=== PATIENT | female | born 1970 | race Caucasian/White ===

== ENCOUNTER → 2017-10-13 | Outpatient (CLI) | payer OTHER ==
[2017-10-13 15:50] VITALS: BP 156/71; PULSE 79; TEMP 97.7; BMI 30.2
--- NOTE | 2017-10-13 17:44 | P.HPOB ---
History of Present Illness H&P Date: 10/13/17 Chief Complaint: The patient is here for her routine gynecologic exam and mammogram. This is a 46-year-old with an LMP of 09/17/2017. She is status post tubal ligation. At the time offer tubal ligation in February 2016, she was told she has a uterine fibroid. It was estimated to be 4 cm and subserosal in nature. This also showed up in an abdominal ultrasound, but no measurements were given. The patient has been experiencing intermittent bladder pressure and urinary urgency. Through her primary caregiver, urine specimens were taken and there were no signs of urinary infection per the patient. She states her menses are regular every month and she does have fairly heavy flow especially on the 2nd day of the menses. She can pass clots and sometimes can soak through her protection on heavy days. Review of Systems The patient's weight has been stable over the last year. She denies respiratory , cardiac, or G.I. problems. 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 She does have a fibroid uterus. History of Any Multi-Drug Resistant Organisms: None Reported Past Surgical History: Cholecystectomy (November 2016), Ear Surgery, Tubal Ligation (February 2016) Additional Past Surgical History / Comment(s): Lens replacement for vision improvement. Past Anesthesia/Blood Transfusion Reactions: No Reported Reaction Additional Past Anesthesia/Blood Transfusion Reaction / Comment(s): no hx blood transfusion Past Psychological History: No Psychological Hx Reported Additional Psychological History / Comment(s): She recently was started on Zoloft to help her to sleep and to stay asleep at night. 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 Paternal grandmother and maternal aunt had breast cancer. Father Family Medical History: Cancer, Myocardial Infarction ([place]) Additional Family Medical History / Comment(s): stomach Medications and Allergies Home Medications Medication Instructions Recorded Confirmed Type Sertraline HCl 50 mg PO HS 02/27/16 03/04/16 History Atorvastatin [Lipitor] mg PO DAILY 10/13/17 History Allergies Allergy/AdvReac Type Severity Reaction Status Date / Time doxycycline AdvReac Severe Nausea & Unverified 10/13/17 15:44 Vomiting Exam Vital Signs Temp Pulse BP 10/13/17 15:45 97.7 F 79 156/71 Intake and Output 10/13/17 10/13/17 10/13/17 06:59 14:59 22:59 Other: Weight 79.832 kg Height 5'4", BMI 30.2. This is a well-developed well-nourished white female who is alert and oriented times 3 in no acute distress. HEENT: Within normal limits. NECK: Supple without mass or thyromegaly. CHEST AND LUNGS: Clear to auscultation. HEART: Regular rate and rhythm. BREASTS: Are without mass or discharge. AXILLARY EXAM: Negative for adenopathy. BACK: Negative for CVA tenderness. ABDOMEN: Soft, nontender, without palpable masses. The uterus is not palpable during the abdominal examination. PELVIC EXAM: Normal external genitalia. Cervix and vagina appear normal. There is no unusual discharge. There is no evidence of prolapse. The uterus is midposition slightly retroverted, 10-12 week size and nontender. The uterus is somewhat firm and slightly regular consistent with uterine fibroids. There are no palpable adnexal masses or tenderness. RECTAL EXAM: rectovaginal exam negative for mass or tenderness and is negative for occult blood. EXTREMITIES: Nontender. IMPRESSION: 1. 46-year-old premenopausal female with 10-12 week size fibroid uterus. 2. Intermittent bladder pressure and urgency with negative urine testing done by her primary caregiver. The urinary symptoms are probably secondary to the enlarged fibroid uterus. 3. Mild hypermenorrhea, possibly secondary to the fibroid uterus. PLAN: 1. Pap smear was performed. 2. Self breast awareness was discussed. 3. Screening mammogram will be done today. 4. Pelvic ultrasound will be scheduled to further delineate the size and number of uterine fibroids. 5. Trial of meclofenamate sodium 100 mg TID PRN for heavy menstrual flow up to 6 days per cycle. An electronic prescription will be sent to [facility] pharmacy in [place]. 6. The patient will try negative Valsalva exercises at the times when she feels pelvic pressure and also prior to voiding. 7. We have had a long discussion regarding uterine fibroids. We will consider referral for possible hysterectomy if symptoms are bothersome and not improving with more conservative measures. 8. She will also return in one year and PRN.
--- NOTE | 2017-10-14 12:14 | MM ---
Reason for exam: screening (asymptomatic). Last mammogram was performed 3 years and 7 months ago. History: Family history of breast cancer in aunt at age 42 and breast cancer in grandmother at age 70. Taking hormonal contraceptives for 13 years. Physical Findings: A clinical breast exam by your physician is recommended on an annual basis and results should be correlated with mammographic findings. MG 3D Screening Mammo W/Cad Bilateral CC and MLO view(s) were taken. XCCL view(s) were taken of the right breast. Prior study comparison: March 24, 2014, bilateral MG screening mammo w CAD. March 23, 2013, bilateral digital screening mammo w/CAD. There are scattered fibroglandular densities. No suspicious abnormality on the right breast. Left upper outer quadrant architectural distortion is seen at middle posterior depth. Left central upper low density mass appears new. ASSESSMENT: Incomplete: need additional imaging evaluation, BI-RAD 0 RECOMMENDATION: Special view mammogram of the left breast. If lesion persists on supplemental views, image directed ultrasound is recommended. [facility] will attempt to contact patient to return for supplemental views and ultrasound if indicated.
== END | disposition home or self-care (01) ==
LOC: WWCWWP 15:22
PROVIDERS: ATTEND Obstetrics & Gynecology
DX: Z12.31 Encounter for screening mammogram for malignant neoplasm of breast (principal)
CPT/HCPCS: 77063; 77067

== ENCOUNTER → 2017-10-15 | Outpatient (CLI) | payer OTHER ==
--- NOTE | 2017-10-15 07:37 | US ---
EXAMINATION TYPE: US pelvis complete transvag DATE OF EXAM: 10/15/2017 COMPARISON: NONE CLINICAL HISTORY: R10.2 Pelvic Pain, D25.9 Uterine Leiomyoma. Pelvic pressure, history of uterine fib roids, tubal ligation TECHNIQUE: Transvaginal (TV) and Transabdominal (TA) . Transabdominal sonographic images of the pel vis were acquired. Transvaginal sonographic images were medically necessary to better assess the fol lowing anatomy: endometrium and ovaries Date of LMP: 09/17/17 EXAM MEASUREMENTS: Uterus: 9.4 x 5.4 x 5.6 cm Endometrial Stripe: 0.8 cm Right Ovary: unable to visualize Left Ovary: 5.5 x 3.8 x 3.6 cm 1. Uterus: Retroverted Nabothian cysts. Multiple probable fibroids noted, largest at anterior right = 4.7 x 4.0 x 5.1cm 2. Endometrium: appears wnl 3. Right Ovary: Obscured by overlying bowel gas 4. Left Ovary: complex area = 4.8 x 2.5 x 4.6cm 5. Bilateral Adnexa: appears wnl 6. Posterior cul-de-sac: free fluid noted IMPRESSION: 1. Complex hypoechoic area left ovary. Hemorrhagic cyst could be considered within the differential. Endometrioma could be considered. Close follow-up is recommended. Other etiologies are not excluded a t this time. 2. Multiple Uterine fibroids. 3. Small amount of free fluid within the pelvis.
== END | disposition home or self-care (01) ==
LOC: RADUSWWP 06:48
PROVIDERS: ATTEND Obstetrics & Gynecology
DX: D25.9 Leiomyoma of uterus, unspecified (principal); N83.299 Other ovarian cyst, unspecified side
CPT/HCPCS: 76830; 76856

== ENCOUNTER → 2017-10-22 | Outpatient (CLI) | payer OTHER ==
--- NOTE | 2017-10-24 08:52 | MM ---
Reason for exam: additional evaluation requested from abnormal screening. Last mammogram was performed less than 1 month ago. History: Family history of breast cancer in aunt at age 42 and breast cancer in grandmother at age 70. Taking hormonal contraceptives for 13 years. Physical Findings: Nurse did not find any significant physical abnormalities on exam. MG 3D Work Up W/Cad LT Spot compression CC, spot compression MLO, and XCCL view(s) were taken of the left breast. Prior study comparison: October 13, 2017, bilateral MG 3d screening mammo w/cad. March 24, 2014, bilateral MG screening mammo w CAD. March 23, 2013, bilateral digital screening mammo w/CAD. Areas of concern nodularities do not go away. These results were verbally communicated with the patient and result sheet given to the patient on 10/22/17 ASSESSMENT: Incomplete: need additional imaging evaluation, BI-RAD 0 RECOMMENDATION: Ultrasound of the left breast.
--- NOTE | 2017-10-24 08:55 | USB ---
Reason for exam: additional evaluation requested from abnormal screening. History: Family history of breast cancer in aunt at age 42 and breast cancer in grandmother at age 70. Taking hormonal contraceptives for 13 years. US Breast Workup LT Left complete breast ultrasound includes all four quadrants, the retroareolar region and axilla. Finding demonstrates no cystic or solid lesion seen. These results were verbally communicated with the patient and result sheet given to the patient on 10/22/17 ASSESSMENT: Probably benign, BI-RAD 3 RECOMMENDATION: Follow-up diagnostic mammogram of the left breast in 6 months.
== END | disposition home or self-care (01) ==
LOC: RADMAMWWP 07:40
PROVIDERS: ATTEND Obstetrics & Gynecology
DX: R92.8 Other abnormal and inconclusive findings on diagnostic imaging of breast (principal)
CPT/HCPCS: 77061; 77065

== ENCOUNTER → 2018-05-07 | Outpatient (CLI) | payer BC ==
--- NOTE | 2018-05-07 13:38 | MM ---
Reason for exam: follow-up at short interval from prior study. Last mammogram was performed 6 months ago. History: Family history of breast cancer in aunt at age 42 and breast cancer in grandmother at age 70. Taking hormonal contraceptives for 13 years. Physical Findings: Nurse did not find any significant physical abnormalities on exam. MG 3D Diag Mammo W/Cad LT CC and MLO view(s) were taken of the left breast. Prior study comparison: October 22, 2017, left breast MG 3d work up w/cad LT. October 13, 2017, bilateral MG 3d screening mammo w/cad. There are scattered fibroglandular densities. No significant new findings when compared with previous films. These results were verbally communicated with the patient and result sheet given to the patient on 05/07/18. ASSESSMENT: Benign, BI-RAD 2 RECOMMENDATION: Return to routine screening mammogram schedule for both breasts. Back on schedule.
== END | disposition home or self-care (01) ==
LOC: RADMAMWWP 12:58
PROVIDERS: ATTEND Obstetrics & Gynecology
DX: R92.8 Other abnormal and inconclusive findings on diagnostic imaging of breast (principal)
CPT/HCPCS: 77061; 77065

== ENCOUNTER → 2018-12-21 | Outpatient (CLI) | payer BC ==
[2018-12-21 15:44] VITALS: BP 128/92; PULSE 84; RESP 16; TEMP 98.5; BMI 29.8
--- NOTE | 2018-12-21 16:23 | P.HPOB ---
History of Present Illness H&P Date: 12/21/18 Chief Complaint: The patient is here for her routine gynecologic exam and ma mmogram. This is a 47-year-old with an LMP of 11/29/2018. The patient has a history of hypermenorrhea. She states she has been doing better with meclofenamate sodium which she takes as needed. She typically uses about 5 per month. 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 She is status post tubal ligation. She was found to have a left ovarian complex cyst measuring approximately 5.1 cm by pelvic ultrasound on 10/15/2017. She was supposed to have a follow-up ultrasound after 2 months, but did not have this done. She denies any pelvic discomfort. Her last Pap smear on 10/13/2017 showed ASCUS with negative high-risk HPV testing. Review of Systems The patient has lost 2 pounds over the last year. She denies respiratory, cardiac, or G.I. problems. 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 She does have a fibroid uterus. History of Any Multi-Drug Resistant Organisms: None Reported Past Surgical History: Cholecystectomy, Ear Surgery, Tubal Ligation Additional Past Surgical History / Comment(s): Lens replacement for vision improvement. Past Anesthesia/Blood Transfusion Reactions: No Reported Reaction Additional Past Anesthesia/Blood Transfusion Reaction / Comment(s): no hx blood transfusion Past Psychological History: No Psychological Hx Reported Additional Psychological History / Comment(s): She recently was started on Zoloft to help her to sleep and to stay asleep at night. 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 - Past Family History Mother Additional Family Medical History / Comment(s): osteoporosis. Paternal grandmother and maternal aunt had breast cancer. Father Family Medical History: Cancer, Myocardial Infarction ([place]) Additional Family Medical History / Comment(s): Gastric cancer. Medications and Allergies Home Medications Medication Instructions Recorded Confirmed Type Sertraline HCl 50 mg PO HS 02/27/16 12/21/18 History Atorvastatin [Lipitor] 10 mg PO DAILY 10/13/17 12/21/18 History Meclofenamate Sodium 100 mg PO TID PRN #25 capsule 10/13/17 12/21/18 Rx Allergies Allergy/AdvReac Type Severity Reaction Status Date / Time doxycycline AdvReac Severe Nausea & Unverified 12/21/18 15:34 Vomiting Exam Vital Signs Temp Pulse Resp BP Pulse Ox 12/21/18 15:36 98.5 F 84 16 128/92 97 Intake and Output 12/21/18 12/21/18 12/21/18 06:59 14:59 22:59 Other: Weight 78.925 kg Height 5 feet 4 inches, weight 174 pounds, BMI 29.9. This is a well-developed well-nourished white female who is alert and oriented times 3 in no acute distress. HEENT: Within normal limits. NECK: Supple without mass or thyromegaly. CHEST AND LUNGS: Clear to auscultation. HEART: Regular rate and rhythm. BREASTS: Are without mass or discharge. AXILLARY EXAM: Negative for adenopathy. BACK: Negative for CVA tenderness. ABDOMEN: Soft, nontender, without palpable masses. PELVIC EXAM: Normal external genitalia. Cervix and vagina appear normal. There is no unusual discharge. There is no evidence of prolapse. The uterus is retroverted, nongravid size and nontender. There are no palpable adnexal masses or tenderness. RECTAL EXAM: negative for mass or tenderness and is negative for occult blood. EXTREMITIES: Nontender. IMPRESSION: 1. 47-year-old female who is status post tubal ligation with normal gynecologic exam. 2. Mild hypermenorrhea improved with meclofenamate sodium. 3. History of uterine fibroids. 4. Previous Pap smear showing ASCUS with negative high-risk HPV testing on 10/13/2017. 5. History of complex left ovarian cyst measuring 5.1 cm on 10/15/2017 pelvic ultrasound. Asymptomatic. PLAN: 1. Pap smear was deferred. We will plan on doing Pap smear cytology with high risk HPV next year. 2. Self breast awareness was discussed with the patient. 3. Screening mammogram will be done today. 4. Continue meclofenamate sodium. The electronic prescription will be sent to my pharmacy in [place]. 5. Pelvic ultrasound to reevaluate the left ovarian cyst. The order slip was given to the patient for this. 6. She was advised to return in one year for her annual well woman exam.
--- NOTE | 2018-12-24 10:03 | MM ---
Reason for exam: screening (asymptomatic). Last mammogram was performed 7 months ago. History: Family history of breast cancer in aunt at age 42 and breast cancer in grandmother at age 70. Took hormonal contraceptives for 13 years. Physical Findings: A clinical breast exam by your physician is recommended on an annual basis and results should be correlated with mammographic findings. MG 3D Screening Mammo W/Cad Bilateral CC and MLO view(s) were taken. Prior study comparison: May 07, 2018, left breast MG 3d diag mammo w/cad LT. October 22, 2017, left breast MG 3d work up w/cad LT. There are scattered fibroglandular densities. No significant changes when compared with prior studies. ASSESSMENT: Benign, BI-RAD 2 RECOMMENDATION: Routine screening mammogram of both breasts in 1 year.
== END | disposition home or self-care (01) ==
LOC: WWCWWP 15:20
PROVIDERS: ATTEND Obstetrics & Gynecology
DX: Z12.31 Encounter for screening mammogram for malignant neoplasm of breast (principal)
CPT/HCPCS: 77063; 77067

== ENCOUNTER → 2019-04-20 | Outpatient (CLI) | payer BC ==
--- NOTE | 2019-04-20 10:41 | US ---
EXAMINATION TYPE: US pelvis complete transvag DATE OF EXAM: 04/20/2019 COMPARISON: us 10/15/2017 CLINICAL HISTORY: N83.0 Follicular cyst of ovary. TECHNIQUE: Transabdominal sonographic images of the pelvis were acquired. Transvaginal sonographic i mages were medically necessary to better assess the following anatomy: Uterus and ovaries Date of LMP: 1 week ago EXAM MEASUREMENTS: Uterus: 7.6 x 4.9 x 4.8 cm Endometrial Stripe: 0.5 cm Right Ovary: 2.8 x 1.8 x 1.7 cm Left Ovary: 3.4 x 1.6 x 1.9 cm 1. Uterus: Retroverted Heterogeneous myometrium probable multiple fibroids, largest measuring 4.7 x 4.3 x 4.7 cm. This previously measured 4.7 x 4.0 x 5.1 cm on the exam of 10/15/2017 2. Endometrium: wnl 3. Right Ovary: Cystic area measuring 1.9 x 1.0 x 1.2 cm. This appears simple. 4. Left Ovary: 2.2 x 1.3 x 1.1 cm complex area visualized. Previously measuring 4.8 x 2.5 x 4.6cm on 10/15/2017 5. Bilateral Adnexa: wnl 6. Posterior cul-de-sac: wnl IMPRESSION: 1. The largest left complex ovarian lesion previously measured up to 4.8 cm and the largest on the cu rrent examination now measures up to 2.2 cm. Findings are likely on the basis of recurring hemorrhagi c cysts. 2. Redemonstration of multiple uterine leiomyomas, no interval growth from the prior of 2017 of the l argest leiomyoma. 3. Right ovarian cyst measuring 1.9 cm.
--- NOTE | 2019-04-20 14:12 | P.PN ---
Progress Note - Text Progress Note Date: 04/20/19 OUTPATIENT FOLLOW-UP NOTE TEST(S)/RESULTS: Pelvic ultrasound done on 04/20/2019 shows a left ovarian complex area measuring 2.2 x 1.3 cm. This is much smaller than the previous 5 cm measurement from October 2017. She continues to have multiple uterine fibroids and the largest measures 4.7 cm. This is felt to be stable from her previous exam in 2018. METHOD OF NOTIFICATION: A message with this result was left on the patient's voicemail. PATIENT COMMENTS: DIAGNOSIS: Left ovarian cyst which has decreased significantly in size from her 2018 pelvic ultrasound. Stable uterine fibroids. DISCUSSION: PLAN: The patient was instructed to call if she is having pelvic symptoms or problems or if she has any questions about this ultrasound.
== END | disposition home or self-care (01) ==
LOC: RADUSWWP 09:34
PROVIDERS: ATTEND Obstetrics & Gynecology
DX: D25.9 Leiomyoma of uterus, unspecified (principal); N83.201 Unspecified ovarian cyst, right side
CPT/HCPCS: 76830; 76856

== ENCOUNTER 2019-10-12 12:25 | Emergency (ER) | payer BC ==
[2019-10-12 12:35] VITALS: TEMP 98.3
[2019-10-12 12:51] VITALS: PULSE 80; RESP 16
[2019-10-12] MEDS ORDERED: SODIUM CHLORIDE 0.9% 1,000 ML IV STA (12:51)
[2019-10-12] MEDS ORDERED: KETOROLAC 30 MG/ML 1 ML VIAL IVP STA (12:51)
--- NOTE | 2019-10-12 13:12 | ED ---
Chest Pain HPI - General Chief Complaint: Chest Pain Stated Complaint: Chest pain Time Seen by Provider: 10/12/19 12:37 Source: family, RN notes reviewed Mode of arrival: ambulatory Limitations: no limitations - History of Present Illness Initial Comments: This is a 48-year-old female with no prior history of heart disease who states she had the onset yesterday of chest tightness and pressure that lasted throughout the day mostly in the left side. She states that it is worsened with about 6/10 severity. She states it is better now 3/10. She states it became more sharp today and more localized to the right anterior upper chest around the collarbone area. It does get worse with deep breathing. She states it does radiate up to her right ear when this occurs. She denies any trauma fevers chills nausea vomiting sweats cough phlegm production no heavy lifting or other symptoms. Her only other history that of a cholecystectomy in the past. MD Complaint: chest pain - Related Data Home Medications Medication Instructions Recorded Confirmed Sertraline HCl 50 mg PO HS 02/27/16 10/12/19 Atorvastatin [Lipitor] 10 mg PO HS 10/13/17 10/12/19 Previous Rx's Medication Instructions Recorded Ibuprofen 800 mg PO Q6HR PRN #20 tablet 10/12/19 Allergies Allergy/AdvReac Type Severity Reaction Status Date / Time doxycycline AdvReac Severe Nausea & Verified 10/12/19 13:38 Vomiting Review of Systems ROS Statement: Those systems with pertinent positive or pertinent negative responses have been documented in the HPI. ROS Other: All systems not noted in ROS Statement are negative. EKG Findings - EKG Results: EKG: interpreted by ENRIKE MADDENL, sinus rhythm, normal axis, normal QRS, normal ST/T, no acute changes (No sinus rhythm a 79. 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 She does have a fibroid uterus. History of Any Multi-Drug Resistant Organisms: None Reported Past Surgical History: Cholecystectomy, Ear Surgery, Tubal Ligation Additional Past Surgical History / Comment(s): Lens replacement for vision improvement. Past Anesthesia/Blood Transfusion Reactions: No Reported Reaction Additional Past Anesthesia/Blood Transfusion Reaction / Comment(s): no hx blood transfusion Past Psychological History: No Psychological Hx Reported Smoking Status: Never smoker Past Alcohol Use History: Rare Past Drug Use History: None Reported - Past Family History Mother Additional Family Medical History / Comment(s): osteoporosis. Paternal grandmother and maternal aunt had breast cancer. Father Family Medical History: Cancer, Myocardial Infarction ([place]) Additional Family Medical History / Comment(s): Gastric cancer. General Exam - General Exam Comments Initial Comments: This is a well-developed well-nourished awake alert oriented 3 female Limitations: no limitations General appearance: alert, in no apparent distress Head exam: Present: atraumatic, normocephalic, normal inspection Eye exam: Present: normal appearance, PERRL, EOMI. Absent: scleral icterus, conjunctival injection, periorbital swelling ENT exam: Present: normal exam, mucous membranes moist Neck exam: Present: normal inspection, full ROM, other (No stridor JVD or bruits). Absent: tenderness, meningismus, lymphadenopathy Respiratory exam: Present: normal lung sounds bilaterally. Absent: respiratory distress, wheezes, rales, rhonchi, stridor Cardiovascular Exam: Present: regular rate, normal rhythm, normal heart sounds. Absent: systolic murmur, diastolic murmur, rubs, gallop, clicks GI/Abdominal exam: Present: soft, normal bowel sounds. Absent: distended, tenderness, guarding, rebound, rigid Extremities exam: Present: normal inspection, full ROM, normal capillary refill. Absent: tenderness, pedal edema, joint swelling, calf tenderness Back exam: Present: normal inspection Neurological exam: Present: alert, oriented X3, CN II-XII intact Psychiatric exam: Present: normal affect, normal mood Skin exam: Present: warm, dry, intact, normal color. Absent: rash Course Vital Signs 10/12/19 10/12/19 10/12/19 12:31 12:40 13:44 Temperature 98.3 F Pulse Rate 79 80 Pulse Rate [ 80 Ladle Filler ] Respiratory 18 16 16 Rate Blood Pressure 146/82 146/73 O2 Sat by Pulse 98 100 Oximetry Chest Pain MDM - MDM I did review the imaging and report no acute findings. Patient is pain-free at this time the presentation is consistent with a musculoskeletal etiology. We did discuss that she'll be discharged on anti-inflammatory pain medication she is a follow-up with her doctor return when necessary Disposition Clinical Impression: Chest wall syndrome Disposition: HOME SELF-CARE Condition: Good Instructions (If sedation given, give patient instructions): Chest Wall Pain (ED) Prescriptions: Ibuprofen 800 mg PO Q6HR PRN #20 tablet PRN Reason: Pain Is patient prescribed a controlled substance at d/c from ED?: No Referrals: Josiah Chambers DO [Primary Care Provider] - 1-2 days
[2019-10-12 13:18] LABS: Basophils # (A) 0.1 k/uL (0-0.2); Basophils % (A) 1 %; Eosinophils # (A) 0.2 k/uL (0-0.7); Eosinophils % (A) 2 %; HGB 12.8 gm/dL (11.4-16.0); Lymphocytes # (A) 2.2 k/uL (1.0-4.8); Lymphocytes % (A) 26 %; MCH 26.3 pg (25.0-35.0); MCHC 31.3 g/dL (31.0-37.0); MCV 84.1 fL (80.0-100.0); Mean Platelet Volume 6.8; Monocytes # (A) 0.3 k/uL (0-1.0); Monocytes % (A) 4 %; Neutrophils # (A) 5.6 k/uL (1.3-7.7); Neutrophils % (A) 66 %; Platelet Count 276 k/uL (150-450); RBC 4.88 m/uL (3.80-5.40); RDW 15.1 % (11.5-15.5); WBC 8.5 k/uL (3.8-10.6)
--- NOTE | 2019-10-12 13:19 | XR ---
EXAMINATION TYPE: XR chest 2V DATE OF EXAM: 10/12/2019 COMPARISON: NONE HISTORY: Chest pain TECHNIQUE: Frontal and lateral views of the chest are obtained. FINDINGS: There is no focal air space opacity, pleural effusion, or pneumothorax seen. The cardiac silhouette size is within normal limits. Surgical clips are present in the right upper quadrant. The osseous structures are intact. IMPRESSION: No acute cardiopulmonary process.
[2019-10-12 13:29] LABS: ALT 16 U/L (4-34); AST 27 U/L (14-36); African American GFR (CKD) >90 (>60 ml/min/1.73 sqM); Albumin 4.5 g/dL (3.5-5.0); Alkaline Phosphatase 106 U/L (38-126); Anion Gap 8 mmol/L; Blood Urea Nitrogen 12 mg/dL (7-17); Calcium 9.3 mg/dL (8.4-10.2); Carbon Dioxide 24 mmol/L (22-30); Chloride 104 mmol/L (98-107); Creatine Kinase 66 U/L (30-135); Glucose 85 mg/dL (74-99); Magnesium 2.2 mg/dL (1.6-2.3); Non-African American GFR(CKD) >90 (>60 ml/min/1.73 sqM); Potassium 4.3 mmol/L (3.5-5.1); Sodium 136 mmol/L (137-145); Total Bilirubin 0.6 mg/dL (0.2-1.3); Total Protein 7.6 g/dL (6.3-8.2)
[2019-10-12 13:31] LABS: D-Dimer 0.37 mg/L FEU (<0.60); INR 0.9 (<1.2); Partial Thromboplastin Time 25.5 sec (22.0-30.0); Prothrombin Time 9.6 sec (9.0-12.0)
[2019-10-12 13:47] VITALS: BP 146/73
== END 2019-10-12 14:37 | disposition home or self-care (01) ==
LOC: EC 12:25
DX: R07.1 Chest pain on breathing (principal); E78.5 Hyperlipidemia, unspecified; Z79.899 Other long term (current) drug therapy; Z88.1 Allergy status to other antibiotic agents
CPT/HCPCS: 36415; 93005; 85379; 83880; 80053; 82550; 83690; 83735; 84484; 85025; 85610; 85730; 71046; 99285; 96374; 96361 ×2; J1885

== ENCOUNTER → 2020-04-05 | Outpatient (CLI) | payer BC ==
--- NOTE | 2020-04-06 14:29 | MM ---
Reason for exam: screening (asymptomatic). Last mammogram was performed 1 year and 3 months ago. History: Family history of breast cancer in aunt at age 42 and breast cancer in grandmother at age 70. Took hormonal contraceptives for 13 years. Physical Findings: A clinical breast exam by your physician is recommended on an annual basis and results should be correlated with mammographic findings. MG 3D Screening Mammo W/Cad Bilateral CC and MLO view(s) were taken. Prior study comparison: December 21, 2018, bilateral MG 3d screening mammo w/cad. May 07, 2018, left breast MG 3d diag mammo w/cad LT. There are scattered fibroglandular densities. There is no discrete abnormality. Right skin lesion. Chronic nodularity stable. ASSESSMENT: Benign, BI-RAD 2 RECOMMENDATION: Routine screening mammogram of both breasts in 1 year.
== END | disposition home or self-care (01) ==
LOC: RADMAMWWP 09:49
PROVIDERS: ATTEND Family Medicine
DX: Z12.31 Encounter for screening mammogram for malignant neoplasm of breast (principal)
CPT/HCPCS: 77063; 77067

== ENCOUNTER → 2021-01-08 | Outpatient (CLI) | payer BC ==
[2021-01-08 09:24] VITALS: BP 145/87; PULSE 94; RESP 16; TEMP 97.8
--- NOTE | 2021-01-08 10:02 | P.HPOB ---
History of Present Illness H&P Date: 01/08/21 Chief Complaint: Heavier menstrual periods with anemia This is a 50-year-old with an LMP of 12/30/2020. She is status post tubal ligation. She states she had her annual pelvic exam done through her PCP's office in June 2020. She states her PCP would not prescribe her meclofenamate sodium which she had been using for hypermenorrhea. Since she stopped using the meclofenamate sodium, she has noticed her menstrual periods have become much heavier with clots. She can soak through 4 pads in a 6 hour period during the heavy days. She is continue to be regular every month lasting a total of 7 days with 2 days of heavy flow. She denies hot flashes. She tried to donate blood, but was told she was anemic. Her PCP started her on prescription iron which the patient states she did not tolerate due to GI issues including constipation. Review of Systems She has lost about 6 pounds over the past 2 years. She denies respiratory, cardiac, or GI problems. 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 She does have a fibroid uterus. History of Any Multi-Drug Resistant Organisms: None Reported Past Surgical History: Cholecystectomy, Ear Surgery, Tubal Ligation Additional Past Surgical History / Comment(s): Lens replacement for vision improvement. Past Anesthesia/Blood Transfusion Reactions: No Reported Reaction Additional Past Anesthesia/Blood Transfusion Reaction / Comment(s): no hx blood transfusion Past Psychological History: No Psychological Hx Reported Additional Psychological History / Comment(s): She recently was started on Zoloft to help her to sleep and to stay asleep at night. Smoking Status: Never smoker Past Alcohol Use History: Rare Past Drug Use History: None Reported - Past Family History Mother Additional Family Medical History / Comment(s): osteoporosis. Paternal grandmother and maternal aunt had breast cancer. Father Family Medical History: Cancer, Myocardial Infarction ([place]) Additional Family Medical History / Comment(s): Gastric cancer. Medications and Allergies Home Medications Medication Instructions Recorded Confirmed Type Sertraline HCl 50 mg PO HS 02/27/16 01/08/21 History Atorvastatin [Lipitor] 10 mg PO HS 10/13/17 01/08/21 History Ibuprofen 800 mg PO Q6HR PRN #20 tablet 10/12/19 01/08/21 Rx Iron 18 mg PO DAILY 01/08/21 01/08/21 History Loratadine [Claritin] 5 mg PO DAILY 01/08/21 01/08/21 History Allergies Allergy/AdvReac Type Severity Reaction Status Date / Time doxycycline AdvReac Severe Nausea & Verified 01/08/21 09:16 Vomiting Exam Vital Signs Temp Pulse Resp BP Pulse Ox 01/08/21 09:18 97.8 F 94 16 145/87 100 Intake and Output 01/07/21 01/08/21 01/08/21 22:59 06:59 14:59 Other: Weight 76.204 kg Height 5 feet 4 inches, weight 168 pounds, BMI 28.8. This is a well-developed well-nourished white female who is alert and oriented times 3 in no acute distress. HEENT: Within normal limits. ABDOMEN: Soft, nontender, without palpable masses. PELVIC EXAM: Normal external genitalia. Cervix and vagina appear normal. There is no unusual discharge. There is no evidence of prolapse. The uterus is retroverted, nongravid size and nontender. There are no palpable adnexal masses or tenderness. EXTREMITIES: Nontender. IMPRESSION: 1. 50-year-old premenopausal female who is status post tubal ligation with normal gynecologic exam. 2. Worsening menorrhagia after she ran out of meclofenamate sodium with anemia. 3. History of uterine fibroid previously measuring 4.7 cm on a 04/20/2019 ultrasound. 4. History of left ovarian cyst measuring 2.2 x 1.3 cm on a 04/20/2019 ultrasound. PLAN: 1. She will be restarted on meclofenamate sodium 100 mg by mouth 3 times a day when necessary for heavy menstrual flow up to 6 days per cycle. The electronic prescription will be sent to my her pharmacy in [place]. 2. I recommended redoing her pelvic ultrasound and the order slip was given to the patient for this. 3. Since she is not tolerating the prescription iron supplement, I recommended that she take ferrous sulfate 325 mg by mouth daily. 4. If her menstrual periods remain heavy despite the meclofenamate sodium usage, we can consider other options including endometrial ablation or GnRH antagonist medication. 5. Will keep a menstrual calendar and call if problems. 6. She will return in June 2021 for her annual examination and as needed.
== END ==
LOC: WWCWWP 09:08
PROVIDERS: ATTEND Obstetrics & Gynecology
DX: Z01.419 Encounter for gynecological examination (general) (routine) without abnormal findings (principal); N92.0 Excessive and frequent menstruation with regular cycle; D64.9 Anemia, unspecified; E78.5 Hyperlipidemia, unspecified; Z80.3 Family history of malignant neoplasm of breast; Z87.42 Personal history of other diseases of the female genital tract; Z88.1 Allergy status to other antibiotic agents; Z79.899 Other long term (current) drug therapy; Z98.51 Tubal ligation status

== ENCOUNTER → 2021-05-27 | Outpatient (CLI) | payer BC ==
--- NOTE | 2021-05-27 08:23 | US ---
EXAMINATION TYPE: US pelvis complete transvag DATE OF EXAM: 05/27/2021 COMPARISON: US CLINICAL HISTORY: N83.0,D25.9,N92.0. menorrhagia, leiomyoma, ovarian cyst; TECHNIQUE: Transvaginal (TV) and Transabdominal (TA) . Transabdominal sonographic images of the pel vis were acquired. Transvaginal sonographic images were medically necessary to better assess the fol lowing anatomy: endometrium and ovaries Date of LMP: 05/21/2021 EXAM MEASUREMENTS: Uterus: 8.4 x 4.5 x 5.0 cm Endometrial Stripe: 0.6 cm Right Ovary: 2.4 x 1.7 x 1.4 cm Left Ovary: 4.2 x 1.6 x 1.3 cm 1. Uterus: Retroverted; couple of Nabothian Cysts are seen in cervix with larger = 0.6 x 0.5 x 0.5cm ; uterine fibroid seen as solid hypoechoic mass in mid to upper myometrium in with exophytic appearan ce = 3.8 x 4.7 x 3.2cm. 2. Endometrium: irregular appearance to upper endometrium but thickness appears wnl for Day 7 LMP. 3. Right Ovary: small follicles are seen 4. Left Ovary: multifollicular with largest seen as peripheral simple cyst = 1.2 x 0.9 x 1.0cm. 5. Bilateral Adnexa: wnl 6. Posterior cul-de-sac: wnl IMPRESSION: 1. Multiple follicular cysts as noted above. 2. Uterine leiomyoma.
--- NOTE | 2021-05-28 11:14 | MM ---
Reason for exam: screening (asymptomatic). Last mammogram was performed 1 year and 2 months ago. History: Family history of breast cancer in aunt at age 42 and breast cancer in grandmother at age 70. Took hormonal contraceptives for 13 years. Physical Findings: A clinical breast exam by your physician is recommended on an annual basis and results should be correlated with mammographic findings. MG 3D Screening Mammo W/Cad Bilateral CC and MLO view(s) were taken. Prior study comparison: April 05, 2020, bilateral MG 3d screening mammo w/cad. December 21, 2018, bilateral MG 3d screening mammo w/cad. There are scattered fibroglandular densities. There is chronic nodularity in the right breast. There is no discrete abnormality. ASSESSMENT: Benign, BI-RAD 2 RECOMMENDATION: Routine screening mammogram of both breasts in 1 year.
--- NOTE | 2021-05-28 14:00 | P.PN ---
Progress Note - Text Progress Note Date: 05/28/21 OUTPATIENT FOLLOW-UP NOTE TEST(S)/RESULTS: Pelvic ultrasound done on 05/27/2021 showed a uterine fibroid measuring 3.8 x 4.7 x 3.2 cm. There is also follicular type cysts with the largest measuring 1.2 cm and there is a simple cyst on the left ovary. METHOD OF NOTIFICATION: The patient was notified by phone. PATIENT COMMENTS: The patient has restarted the meclofenamate sodium and her menstrual periods are much improved. DIAGNOSIS: Stable Uterine fibroid. Menorrhagia improved with meclofenamate sodium. DISCUSSION: We have discussed options including conservative management as well as surgical options. Since her menstrual periods seem to be much improved with meclofenamate sodium, we will continue with this medication as needed. She will call if she is having worsening menstrual problems. PLAN: She was advised to return in one year for her annual well woman exam or as needed.
== END | disposition home or self-care (01) ==
LOC: RADUSWWP 07:01
PROVIDERS: ATTEND Obstetrics & Gynecology
DX: Z12.31 Encounter for screening mammogram for malignant neoplasm of breast (principal); D25.9 Leiomyoma of uterus, unspecified; N83.02 Follicular cyst of left ovary; N83.01 Follicular cyst of right ovary; Z80.3 Family history of malignant neoplasm of breast
CPT/HCPCS: 76830; 76856; 77063; 77067

== ENCOUNTER → 2022-02-25 | Outpatient (CLI) | payer BC ==
[2022-02-25 16:05] VITALS: BP 146/80; PULSE 77; RESP 16; TEMP 98.7
--- NOTE | 2022-02-25 17:00 | P.HPOB ---
History of Present Illness H&P Date: 02/25/22 Chief Complaint: The patient is here for her routine gynecologic exam. This is a 51-year-old with an LMP of 02/11/2022. The patient continues to use meclofenamate sodium for heavy menstrual periods. She finds it is helpful. Menstrual periods are regular every month. She is otherwise without gynecologic complaints. Review of Systems The patient has gained 6 pounds over the last year. She denies respiratory, cardiac, or G.I. problems. 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 She does have a fibroid uterus. History of Any Multi-Drug Resistant Organisms: None Reported Past Surgical History: Cholecystectomy, Ear Surgery, Tubal Ligation Additional Past Surgical History / Comment(s): Lens replacement for vision improvement. Past Anesthesia/Blood Transfusion Reactions: No Reported Reaction Additional Past Anesthesia/Blood Transfusion Reaction / Comment(s): no hx blood transfusion Past Psychological History: No Psychological Hx Reported Additional Psychological History / Comment(s): On Zoloft to help her to sleep and to stay asleep at night. 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 She is . - Past Family History Mother Additional Family Medical History / Comment(s): osteoporosis.Showing some signs of memory loss and issues with cognition. Paternal grandmother and maternal aunt had breast cancer. Maternal cousin had breast cancer. Father Family Medical History: Cancer, Myocardial Infarction ([place]) Additional Family Medical History / Comment(s): Gastric cancer. Medications and Allergies Home Medications Medication Instructions Recorded Confirmed Type Sertraline HCl 50 mg PO HS 02/27/16 02/25/22 History Atorvastatin [Lipitor] 10 mg PO HS 10/13/17 02/25/22 History Ibuprofen 800 mg PO Q6HR PRN #20 tablet 10/12/19 02/25/22 Rx Iron 18 mg PO DAILY 01/08/21 02/25/22 History Loratadine [Claritin] 5 mg PO DAILY 01/08/21 02/25/22 History Meclofenamate Sodium 100 mg PO TID PRN #30 capsule 01/08/21 02/25/22 Rx Allergies Allergy/AdvReac Type Severity Reaction Status Date / Time doxycycline AdvReac Severe Nausea & Verified 02/25/22 16:00 Vomiting Exam Vital Signs Temp Pulse Resp BP Pulse Ox 02/25/22 16:02 98.7 F 77 16 146/80 99 Intake and Output 02/25/22 02/25/22 02/25/22 06:59 14:59 22:59 Other: Weight 78.925 kg Height 5 feet 4 inches, weight 174 pounds, BMI 29.9. This is a well-developed well-nourished white female who is alert and oriented times 3 in no acute distress. HEENT: Within normal limits. NECK: Supple without mass or thyromegaly. CHEST AND LUNGS: Clear to auscultation. HEART: Regular rate and rhythm. BREASTS: Are without mass or discharge. AXILLARY EXAM: Negative for adenopathy. BACK: Negative for CVA tenderness. ABDOMEN: Soft, nontender, without palpable masses. PELVIC EXAM: Normal external genitalia. Cervix and vagina appear normal. There is no unusual discharge. There is no evidence of prolapse. The uterus is retroverted, nongravid size and nontender. There are no palpable adnexal masses or tenderness. RECTAL EXAM: Rectovaginal exam is negative for mass or tenderness and is negative for occult blood. EXTREMITIES: Nontender. IMPRESSION: 1. 51-year-old preimenopausal female who is status post tubal ligation with normal gynecologic exam. 2. Mild hypermenorrhea improved with meclofenamate sodium. 3. History of uterine fibroid of approximate 4.7 cm by ultrasound. 4. Previous Pap smear showed ASCUS with negative high-risk HPV testing on 10/13/2017. PLAN: 1. Pap smear cotest was performed. 2. Self breast awareness was discussed with the patient. We have also discussed symptoms associated with inflammatory breast cancer. 3. Screening mammogram will be due in May 2022. The order slip was given to the patient for this. 4. Continue meclofenamate sodium. The electronic prescription will be sent to [facility] pharmacy in [place]. 5. She has completed her Covid vaccination series and has received 2 boosters. 6.Osteoporosis prevention was discussed. I have stressed the importance of adequate calcium, vitamin D and regular exercise. Recommended amounts of calcium and vitamin D were also discussed. 7. She will continue to keep a menstrual calendar and call if menstrual problems. 8. She was advised to return in one year for her annual well woman exam and as needed.
== END ==
LOC: WWCWWP 15:56
PROVIDERS: ATTEND Obstetrics & Gynecology
DX: Z01.419 Encounter for gynecological examination (general) (routine) without abnormal findings (principal); E78.5 Hyperlipidemia, unspecified; Z88.1 Allergy status to other antibiotic agents

== ENCOUNTER → 2023-04-03 | Outpatient (CLI) | payer BC ==
--- NOTE | 2023-04-03 20:36 | MM ---
Reason for Exam: Screening (asymptomatic). Last mammogram was performed 1 year(s) and 10 month(s) ago. Patient History: Menarche at age 10. First Full-Term at age 23. Patient used Hormonal Contraceptives for 13 years. Maternal grandmother had breast cancer, age 70. Maternal aunt had breast cancer, age 42. Maternal cousin had breast cancer at or over age 50. Maternal cousin had breast cancer at or over age 50. Risk Values: Dianne 5 year model risk: 1.3%. NCI Lifetime model risk: 9.3%. Prior Study Comparison: 12/21/2018 Bilateral Screening Mammogram, [facility]. 04/05/2020 Bilateral Screening Mammogram, [facility]. 05/27/2021 Bilateral Screening Mammogram, [facility]. Tissue Density: There are scattered fibroglandular densities. Findings: Analyzed By CAD. Chronic nodularity right breast. There is no suspicious group of microcalcifications or new suspicious mass in either breast. Overall Assessment: Benign, BI-RAD 2 Management: Screening Mammogram of both breasts in 1 year. . Patient should continue monthly self-breast exams. A clinical breast exam by your physician is recommended on an annual basis. This exam should not preclude additional follow-up of suspicious palpable abnormalities. Note on Dianne scores and lifetime risk: 1. A Dianne score greater than 3% is considered moderate risk. If this is the case, consider specialist referral to assess eligibility for a risk reducing agent. 2. If overall lifetime risk for the development of breast cancer is 20% or higher, the patient may qualify for future screening with alternating mammogram and breast MRI. Electronically signed and approved by: Prasad Mccall M.D. Radiologist
== END | disposition home or self-care (01) ==
LOC: RADMAMWWP 07:01
PROVIDERS: ATTEND Obstetrics & Gynecology
DX: Z12.31 Encounter for screening mammogram for malignant neoplasm of breast (principal); Z80.3 Family history of malignant neoplasm of breast
CPT/HCPCS: 77063; 77067

== ENCOUNTER → 2023-04-14 | Outpatient (CLI) | payer BC ==
[2023-04-14 10:45] VITALS: BP 142/85; PULSE 98; RESP 17; TEMP 97.9
--- NOTE | 2023-04-14 10:49 | P.HPOB ---
History of Present Illness H&P Date: 04/14/23 Chief Complaint: The patient is here for her routine gynecologic exam. This is a 52-year-old with an LMP of 03/01/2023. States her menstrual periods have been regular every month, but have been less heavy than in the past. She has used Meclofenamate sodium occasionally for heavy menstrual flow. She does not use this every month. She has noticed a fair number of hot flashes during the past 2 months. Review of Systems The patient has lost 6 pounds over the last year. She denies respiratory, cardiac, or G.I. problems. 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 She does have a fibroid uterus. History of Any Multi-Drug Resistant Organisms: None Reported Past Surgical History: Cholecystectomy, Ear Surgery, Tubal Ligation Additional Past Surgical History / Comment(s): Lens replacement for vision improvement. Colonoscopy 2019 (next after 5yr) Past Anesthesia/Blood Transfusion Reactions: No Reported Reaction Additional Past Anesthesia/Blood Transfusion Reaction / Comment(s): no hx blood transfusion Past Psychological History: No Psychological Hx Reported Additional Psychological History / Comment(s): On Zoloft to help her to sleep and to stay asleep at night. Smoking Status: Never smoker Past Alcohol Use History: Rare (One per month) Past Drug Use History: None Reported Additional History: She is . 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 - Past Family History Mother Additional Family Medical History / Comment(s): osteoporosis.Showing some signs of memory loss and issues with cognition. Paternal grandmother and maternal aunt had breast cancer. Two Maternal cousins had breast cancer. Father Family Medical History: Cancer, Myocardial Infarction ([place]) Additional Family Medical History / Comment(s): Gastric cancer. Medications and Allergies Home Medications Medication Instructions Recorded Confirmed Type Sertraline HCl 50 mg PO HS 02/26/04/14/23 History Atorvastatin [Lipitor] 10 mg PO HS 10/13/17 04/14/23 History Ibuprofen 800 mg PO Q6HR PRN #20 tablet 10/12/19 04/14/23 Rx Loratadine [Claritin] 5 mg PO DAILY 01/08/21 04/14/23 History Meclofenamate Sodium 100 mg PO TID PRN #30 capsule 02/25/22 04/14/23 Rx Allergies Allergy/AdvReac Type Severity Reaction Status Date / Time doxycycline AdvReac Severe Nausea & Verified 04/14/23 10:04 Vomiting Exam Intake and Output 04/13/23 04/14/23 04/14/23 22:59 06:59 14:59 Other: Weight 76.204 kg Blood pressure 142/85, height 5 feet 4 inches, weight 168 pounds, BMI 28.8, temperature 97.9, pulse 98, pulse oximeter 98%. This is a well-developed well-nourished white female who is alert and oriented times 3 in no acute distress. HEENT: Within normal limits. NECK: Supple without mass or thyromegaly. CHEST AND LUNGS: Clear to auscultation. HEART: Regular rate and rhythm. BREASTS: Are without mass or discharge. AXILLARY EXAM: Negative for adenopathy. BACK: Negative for CVA tenderness. ABDOMEN: Soft, nontender, without palpable masses. PELVIC EXAM: Normal external genitalia. Cervix and vagina appear arabella. There is no unusual discharge. There is no evidence of prolapse. The uterus is retroverted, nongravid size and nontender. There are no palpable adnexal masses or tenderness. RECTAL EXAM: Rectovaginal exam is negative for mass or tenderness and is negative for occult blood. EXTREMITIES: Nontender. IMPRESSION: 1. 52-year-old female with recent vasomotor symptoms possible early perimenopause. 2. History hypermenorrhea improved with meclofenamate sodium and history of uterine fibroid measuring 4.7 cm. 3. Normal gynecologic exam. 4. Previous ASCUS Pap smear with negative high-risk HPV testing and this was followed with a low-grade AZUL Pap smear and negative high-risk HPV testing. 5. Family history of breast cancer in a maternal aunt and 2 maternal cousins. PLAN: 1. Pap smear cotest was performed. ASCCP management guidelines will be used to determine the appropriate follow-up. 2. Self breast awareness was discussed with the patient. We have also discussed symptoms associated with inflammatory breast cancer. 3. Screening mammogram was done on 04/03/2023 and was benign. 4. Osteoporosis prevention was discussed. I have stressed the importance of adequate calcium, vitamin D and regular exercise. Recommended amounts of calcium and vitamin D were also discussed. 5. She will continue to use meclofenamate sodium as needed. Electronic prescription sent to [facility] pharmacy. 6. We have discussed the option of cancer genetic testing. She will try to get more information from her family members who have had breast cancer including if they were tested for genetic cancer mutations. She will let me know if she wants to proceed with genetic counseling and testing. 7. She was advised to return in one year for her annual well woman exam and as needed.
== END ==
LOC: WWCWWP 09:52
PROVIDERS: ATTEND Obstetrics & Gynecology
DX: E78.5 Hyperlipidemia, unspecified (principal); J30.0 Vasomotor rhinitis; N92.0 Excessive and frequent menstruation with regular cycle; Z98.51 Tubal ligation status; Z80.3 Family history of malignant neoplasm of breast; Z87.42 Personal history of other diseases of the female genital tract; Z88.1 Allergy status to other antibiotic agents; Z86.018 Personal history of other benign neoplasm

== ENCOUNTER → 2023-08-07 | Outpatient (CLI) | payer BC ==
--- NOTE | 2023-08-08 22:21 | US ---
EXAMINATION TYPE: US extremity nonvasc mass RT DATE OF EXAM: 08/07/2023 COMPARISON: NONE CLINICAL INDICATION: Female, 52 years old with history of M25.869 OTHER SPECIFIED JOINT DISORDERS, UN SPECIFI; Pea size lump right knee TECHNIQUE: FINDINGS: Anechoic lesion right knee within area of concern = 0.5 x 0.4 x 0.6cm IMPRESSION: 1. There may be a small ganglion cyst present at the palpable region just under the subcutaneous tiss ues. MRI further evaluate this finding.
== END | disposition home or self-care (01) ==
LOC: RADUSWWP 16:13
PROVIDERS: ATTEND Family Medicine
DX: M25.861 Other specified joint disorders, right knee (principal); R22.41 Localized swelling, mass and lump, right lower limb